=== PATIENT | female | born 1995 | race Caucasian/White ===

== ENCOUNTER 2018-10-12 00:05 | Emergency (ER) | payer OTHER ==
[~2018-10-12] VITALS: Ht 167.6 cm; Wt 95.3 kg
[2018-10-12 00:09] VITALS: BP 121/87
[2018-10-12 00:10] VITALS: BP 121/87
== END 2018-10-12 00:35 | disposition home or self-care (01) ==
LOC: MED 00:05
DX: B00.1 Herpesviral vesicular dermatitis (principal)
CPT/HCPCS: 99283

== ENCOUNTER 2019-06-07 17:53 | Emergency (ER) | payer OTHER ==
[~2019-06-07] VITALS: Ht 170.2 cm; Wt 87.1 kg
[2019-06-07 17:57] VITALS: BP 147/96
[2019-06-07] MEDS ORDERED: HYD2.5O TP (18:14)
[2019-06-07] MEDS ORDERED: IBUP200C97 PO (18:15)
[2019-06-07] MEDS ORDERED: ACET1TAB93 PO (18:16)
--- NOTE | 2019-06-07 18:17 | NUR ---
PATIENT AMBULATED TO BED 7
--- NOTE | 2019-06-07 18:45 | NUR ---
PT PRESENTS TO ED WITH C/O RECTAL DISCOMFORT; PT REPORTS PRURITUS, DENIES ANY PAIN. PER PT SHE WAS RECENTLY DX WITH HEMORRHOIDS. DENIES ANY RECTAL BLEEDING.
--- NOTE | 2019-06-07 18:56 | NUR ---
Rectal exam performed by AMNA Baez with OSCAR Desai at bedside during entire procedure. Patient tolerated well.
[2019-06-07 19:26] VITALS: BP 137/82
--- NOTE | 2019-06-07 19:26 | NUR ---
REPORT GIVEN TO OSCAR CURRAN. TRANSFER OF CARE AT THIS TIME.
--- NOTE | 2019-06-07 19:26 | NUR ---
Patient discharged with v/s stable. Written and verbal after care instructions given and explained. Patient alert, oriented and verbalized understanding of instructions. Ambulatory with steady gait. All questions addressed prior to discharge. ID band removed. Patient advised to follow up with PMD. Rx of benzocaine, docusate given. Patient educated on indication of medication including possible reaction and side effects. Opportunity to ask questions provided and answered.
== END 2019-06-07 19:26 | disposition home or self-care (01) ==
LOC: MED 17:53
DX: K64.4 Residual hemorrhoidal skin tags (principal); Z79.899 Other long term (current) drug therapy
CPT/HCPCS: 81025; 99282

== ENCOUNTER 2019-08-27 17:46 | Emergency (ER) | payer OTHER ==
[~2019-08-27] VITALS: Ht 167.6 cm; Wt 88.5 kg
[~2019-08-27 17:46] MED LIST: ACET1TAB93 PO; HYD2.5O TP; IBUP200C97 PO
[2019-08-27 17:49] VITALS: BP 140/92
[2019-08-27] MEDS ORDERED: IBUPROFEN 600 MG TAB PO ONE (18:20)
[2019-08-27 18:59] VITALS: BP 134/82
== END 2019-08-27 18:56 | disposition home or self-care (01) ==
LOC: MED 17:46
DX: R09.1 Pleurisy (principal); F41.9 Anxiety disorder, unspecified; Z79.1 Long term (current) use of non-steroidal anti-inflammatories (NSAID); Z79.899 Other long term (current) drug therapy
CPT/HCPCS: 71045; 99283

== ENCOUNTER 2019-09-02 14:17 | Emergency (ER) | payer OTHER ==
[~2019-09-02] VITALS: Ht 167.6 cm; Wt 88.0 kg
[2019-09-02 14:27] VITALS: BP 146/90
--- NOTE | 2019-09-02 14:51 | NUR ---
C/O VAGINAL DISCOMFORT X 1 WEEK. DENIES DYSURIA, ITCHING, DISCHARGE. SEEN BY PMD AND DIAGNOSED WITH YEAST INFECTION. GIVEN RX OF DIFLUCAN. PATIENT STATES SHE "JUST WANTS TO BE SURE THAT IT REALLY IS A YEAST INFECTION" AA0X4. VSS. BED IS DOWN, LOCKED, BED RAIL X 1, ERMD TO SEE PT. PMH- DENIES
--- NOTE | 2019-09-02 15:13 | NUR ---
AMNA ADAMS AT BEDSIDE
[2019-09-02 15:33] VITALS: BP 109/62
--- NOTE | 2019-09-02 15:33 | NUR ---
Patient discharged with v/s stable. Written and verbal after care instructions given and explained. Patient alert, oriented and verbalized understanding of instructions. Ambulatory with steady gait. All questions addressed prior to discharge. ID band removed. Patient advised to follow up with PMD. Rx of ibuprofen, cepacol sensations cooling lozenge given. Patient educated on indication of medication including possible reaction and side effects. Opportunity to ask questions provided and answered.
[2019-09-05 15:09] LABS: CHLAMYDIA TRACHOMATIS AMP DNA Negative (Negative)
== END 2019-09-02 15:33 | disposition home or self-care (01) ==
LOC: MED 14:17
DX: J02.9 Acute pharyngitis, unspecified (principal); R10.2 Pelvic and perineal pain; Z20.2 Contact with and (suspected) exposure to infections with a predominantly sexual mode of transmission; Z79.899 Other long term (current) drug therapy
CPT/HCPCS: 36415; 81002; 81025; 87491; 99282

== ENCOUNTER 2020-09-22 12:44 | Emergency (ER) | payer OTHER ==
[~2020-09-22] VITALS: Ht 167.6 cm; Wt 83.9 kg
[2020-09-22 12:47] VITALS: BP 125/84
--- NOTE | 2020-09-22 12:50 | NUR ---
25/F presents to ED with complaints of dysuria x 3-4 days. Pt describes pain only with urination. Denies pain at this time. Denies n/v/d. Denies fever or chills. Denies hematuria, frequency, dribbling. Pt also reports noticing a foul odor in her urine. VSS.
--- NOTE | 2020-09-22 13:00 | NUR ---
Patient being evaluated by Dr. De Jesus at bedside.
[2020-09-22 13:11] VITALS: BP 125/84
--- NOTE | 2020-09-22 13:11 | NUR ---
Patient discharged with v/s stable. Written and verbal after care instructions given and explained. Patient alert, oriented and verbalized understanding of instructions. Ambulatory with steady gait. All questions addressed prior to discharge. ID band removed. Patient advised to follow up with PMD. Rx of Cipro 500mg and Pyridium 200mg given. Patient educated on indication of medication including possible reaction and side effects. Opportunity to ask questions provided and answered.
== END 2020-09-22 13:11 | disposition home or self-care (01) ==
LOC: MED 12:44
DX: N39.0 Urinary tract infection, site not specified (principal); Z79.899 Other long term (current) drug therapy
CPT/HCPCS: 81002; 81025; 99283

== ENCOUNTER 2020-12-05 11:01 | Emergency (ER) | payer OTHER ==
--- NOTE | 2020-12-05 11:13 | NUR ---
PATIENT LEFT WITHOUT BEING TRIAGED. NO FURTHER CARE PROVIDED FOR PATIENT.
== END 2020-12-05 11:13 | disposition home or self-care (01) ==
LOC: MED 11:01
DX: Z53.21 Procedure and treatment not carried out due to patient leaving prior to being seen by health care provider (principal)

== ENCOUNTER 2021-11-19 16:26 | Emergency (ER) | payer OTHER ==
[~2021-11-19] VITALS: Ht 167.6 cm; Wt 88.5 kg
[2021-11-19 17:14] VITALS: BP 141/98
[2021-11-19] MEDS ORDERED: CETI10SG1 PO (17:53)
[2021-11-19] MEDS ORDERED: HYD1C TP (17:53)
[2021-11-19 18:04] VITALS: BP 141/98
== END 2021-11-19 18:04 | disposition home or self-care (01) ==
LOC: MED 16:26
DX: L25.9 Unspecified contact dermatitis, unspecified cause (principal)
CPT/HCPCS: 99282

== ENCOUNTER 2022-03-24 14:40 | Emergency (ER) | payer OTHER ==
[~2022-03-24] VITALS: Ht 167.6 cm; Wt 95.3 kg
[~2022-03-24 14:40] MED LIST changes: +CETI10SG1 PO; +HYD1C TP
[2022-03-24 14:47] VITALS: BP 103/83
--- NOTE | 2022-03-24 15:11 | NUR ---
PT AMBULATED TO ER BED 12
[2022-03-24] MEDS ORDERED: TETRACAINE HCL/PF 0.5% OPTH 4 ML BTL OP ONE (16:20)
[2022-03-24] MEDS ORDERED: FLUORESCEIN OPTH STRIP 1 MG OP ONE (16:20)
[2022-03-24] MEDS ORDERED: POLY30DR2 OP (17:06)
[2022-03-24] MEDS ORDERED: LORA10TA60 PO (17:06)
--- NOTE | 2022-03-24 17:18 | NUR ---
Patient discharged with v/s stable. Written and verbal after care instructions given and explained. Patient alert, oriented and verbalized understanding of instructions. Ambulatory with steady gait. All questions addressed prior to discharge. ID band removed. Patient advised to follow up with PMD. Rx of LORATADINE AND VISINE given. Patient educated on indication of medication including possible reaction and side effects. Opportunity to ask questions provided and answered.
--- NOTE | 2022-03-24 17:20 | NUR ---
The patient's care was reviewed and supervised by [facility], RN.
[2022-03-24 17:21] VITALS: BP 137/85
== END 2022-03-24 17:18 | disposition home or self-care (01) ==
LOC: MED 14:40
DX: H10.9 Unspecified conjunctivitis (principal); Z79.899 Other long term (current) drug therapy; Z79.1 Long term (current) use of non-steroidal anti-inflammatories (NSAID)
CPT/HCPCS: 99283

== ENCOUNTER 2022-11-22 07:55 | Emergency (ER) | payer OTHER ==
[~2022-11-22] VITALS: Ht 167.6 cm; Wt 100.7 kg
[~2022-11-22 07:55] MED LIST changes: +LORA10TA60 PO; +POLY30DR2 OP
[2022-11-22 07:57] VITALS: BP 142/90
--- NOTE | 2022-11-22 08:12 | NUR ---
BIB SELF C/O CLOUDY URINE & ODOR URINATION X 2 DAYS. DENIES N/V/D; SKIN IS PINK/WARM/DRY; AAOX4 WITH EVEN AND STEADY GAIT; LUNGS CLEAR BL; HR EVEN AND REGULAR; PT DENIES ANY FEVER, CP, SOB, OR COUGH AT THIS TIME; PATIENT STATES PAIN OF 0/10 AT THIS TIME.
[2022-11-22 08:35] LABS: APPEARANCE,URINE SL CLOUDY (CLEAR); BILIRUBIN,URINE NEGATIVE (NEGATIVE); BLOOD, URINE 2+ (NEGATIVE); COLOR,URINE AMBER (YELLOW); LEUKOCYTE ESTERASE ,URINE 1+ (NEGATIVE); NITRITE, URINE POSITIVE (NEGATIVE); UGLUCOSE NEGATIVE (NEGATIVE)
[2022-11-22] MEDS ORDERED: NITR100C7 PO (08:41)
[2022-11-22 08:47] VITALS: BP 123/87
[2022-11-22 09:01] LABS: OTHER CASTS, URINE None Seen /LPF (None Seen); RBC,URINE 11-20 (MOD) /HPF (0-5)
== END 2022-11-22 09:39 | disposition home or self-care (01) ==
LOC: MED 07:55
DX: N39.0 Urinary tract infection, site not specified (principal)
CPT/HCPCS: 81001; 81025; 87086; 99283

== ENCOUNTER 2023-05-26 13:03 | Emergency (ER) | payer OTHER ==
[~2023-05-26] VITALS: Ht 167.6 cm; Wt 103.4 kg
[~2023-05-26 13:03] MED LIST changes: +NITR100C7 PO
[2023-05-26 13:19] VITALS: BP 134/95; PULSE 96; RESP 20; TEMP 99; O2SAT 100
[2023-05-26] MEDS ORDERED: HYD1C TP (14:18)
[2023-05-26] MEDS ORDERED: IBUP-1842 PO (14:18)
[2023-05-26 14:58] VITALS: O2SAT 100
--- NOTE | 2023-05-26 14:59 | NUR ---
Patient discharged with v/s stable. Written and verbal after care instructions given and explained. Patient verbalized understanding. Ambulatory with steady gait. All questions addressed prior to discharge. Advised to follow up with PMD.
== END 2023-05-26 14:55 | disposition home or self-care (01) ==
LOC: MED 13:03
DX: R21 Rash and other nonspecific skin eruption (principal); Z79.899 Other long term (current) drug therapy
CPT/HCPCS: 99282

== ENCOUNTER 2023-07-04 13:05 | Emergency (ER) | payer OTHER ==
[~2023-07-04] VITALS: Ht 167.6 cm; Wt 103.9 kg
[~2023-07-04 13:05] MED LIST changes: +IBUP-1842 PO
[2023-07-04 13:42] VITALS: BP 128/91; PULSE 77; RESP 20; TEMP 98.1; O2SAT 98
[2023-07-04] MEDS ORDERED: IBUP-426 PO (14:52)
[2023-07-04] MEDS ORDERED: TRIA0.029 TP (14:52)
--- NOTE | 2023-07-04 15:15 | NUR ---
Patient discharged with v/s stable. Written and verbal after care instructions given and explained. Patient alert, oriented and verbalized understanding of instructions. Ambulatory with to home. All questions addressed prior to discharge. ID band removed. Patient advised to follow up with PMD. Rx of triacinolone given. Patient educated on indication of medication including possible reaction and side effects. Opportunity to ask questions provided and answered.
== END 2023-07-04 15:14 | disposition home or self-care (01) ==
LOC: MED 13:05
DX: R21 Rash and other nonspecific skin eruption (principal); Z79.899 Other long term (current) drug therapy
CPT/HCPCS: 99283

== ENCOUNTER 2023-08-08 20:14 | Emergency (ER) | payer OTHER ==
[~2023-08-08] VITALS: Ht 167.6 cm; Wt 98.4 kg
[~2023-08-08 20:14] MED LIST changes: +IBUP-426 PO; +TRIA0.029 TP
[2023-08-08 20:16] VITALS: BP 140/96; PULSE 94; RESP 16; TEMP 97.7; O2SAT 99
[2023-08-08 20:56] LABS: APPEARANCE,URINE CLEAR (CLEAR); BILIRUBIN,URINE NEGATIVE (NEGATIVE); BLOOD, URINE 3+ (NEGATIVE); COLOR,URINE YELLOW (YELLOW); LEUKOCYTE ESTERASE ,URINE NEGATIVE (NEGATIVE); NITRITE, URINE NEGATIVE (NEGATIVE); PROTEIN,URINE NEGATIVE (NEGATIVE); UGLUCOSE NEGATIVE (NEGATIVE); UROBILINOGEN,URINE 0.2 EU/dL (0.2 - 1)
[2023-08-08 21:18] LABS: BACTERIA,URINE FEW /HPF (None Seen); MUCUS,URINE None Seen /LPF (None Seen); SQUAMOUS EPITHELIAL CELL,UR 0-3 (FEW) /LPF (0-3 (FEW)); TRICHOMONAS,URINE None Seen /HPF (None Seen); WBC,URINE 0-5 /HPF (0-5); WHITE BLOOD CELL CASTS,URINE None Seen /LPF (None Seen); YEAST,URINE None Seen /HPF (None Seen)
[2023-08-08] MEDS ORDERED: NAPR-1871 PO (21:29)
== END 2023-08-08 21:35 | disposition home or self-care (01) ==
LOC: MED 20:14
DX: R10.2 Pelvic and perineal pain (principal); Z79.899 Other long term (current) drug therapy; Z79.1 Long term (current) use of non-steroidal anti-inflammatories (NSAID); Z79.2 Long term (current) use of antibiotics
CPT/HCPCS: 81001; 81025; 99283; 99284

== ENCOUNTER 2023-08-19 08:28 | Emergency (ER) | payer OTHER ==
[~2023-08-19] VITALS: Ht 170.2 cm; Wt 95.3 kg
[~2023-08-19 08:28] MED LIST changes: +NAPR-1871 PO
[2023-08-19 08:57] VITALS: BP 141/88; PULSE 98; RESP 20; TEMP 97; O2SAT 98
[2023-08-19] MEDS ORDERED: KETOROLAC 60 MG/2 ML VIAL IM ONE (09:25)
[2023-08-19] MEDS ORDERED: HYDR-5191 PO (09:28)
== END 2023-08-19 10:09 | disposition home or self-care (01) ==
LOC: MED 08:28
DX: K64.9 Unspecified hemorrhoids (principal); Z79.899 Other long term (current) drug therapy
CPT/HCPCS: 81025; 96372; 99283; J1885; 81002